=== PATIENT | male | born 1965 | race Caucasian/White ===

== ENCOUNTER 2021-04-02 09:45 | Outpatient (REF) | payer OTHER, SELFPAY | END 2021-04-02 09:46 | disposition home or self-care (01) | LOC: HO.HMGCLDS 09:45 | PROVIDERS: Visit Provider Internal Medicine | DX: Z20.822 Contact with and (suspected) exposure to COVID-19 (principal) | CPT/HCPCS: C9803; U0003; U0005 ==

== ENCOUNTER 2022-09-01 12:22 | Outpatient (REF) | payer OTHER, SELFPAY ==
[2022-09-01 14:13] LABS: Vitamin B12 834 pg/mL (200-900)
[2022-09-02 04:49] LABS: Syphilis Screen Nonreactive (Nonreactive)
[2022-09-03 02:23] LABS: Lyme Abs Screen <0.90 index
== END 2022-09-01 12:23 | disposition home or self-care (01) ==
LOC: HO.LAB 12:22
PROVIDERS: Visit Provider Psychiatry & Neurology Neurology
DX: G30.9 Alzheimer's disease, unspecified (principal)
CPT/HCPCS: 36415; 82607; 86617; 86618; 86780

== ENCOUNTER 2022-09-10 09:14 | Day surgery (SDC) | payer OTHER, SELFPAY ==
--- NOTE | ~2022-09-10 | FL_ITS ---
EXAMINATION: XR LUMBAR PUNCTURE CLINICAL INFORMATION: Alzheimer's disease. COMPARISON: MRI brain 09/07/2022. TECHNIQUE: Following explaining fluoroscopy-guided lumbar puncture procedure, benefits and risks, a written consent was obtained. Patient was placed prone on fluoroscopy table and an optimal site was selected overlying the L4-L5 disc level and marked on the skin. The marked area was cleaned and draped in usual sterile manner. 1% lidocaine was injected at puncture site. A 22-gauge spinal needle was advanced from the skin intrathecally at the L4-L5 disc level. After observing CSF return, patient was placed in left lateral decubitus view and opening CSF pressure was obtained. Subsequently clear CSF fluid was collected in 4 test tubes. The second test tube was slightly blood-tinged secondary to traumatic positioning. Postprocedure, needle was withdrawn and complete hemostasis achieved. Sterile Band-Aid applied postprocedure. Patient tolerated procedure extremely well. FINDINGS: On the visualized PA and lateral lumbar spine images the vertebral heights, alignment and disc heights are normal. A spinal needle is positioned intrathecally at the L4-L5 disc level. Opening CSF pressure 5 cm of water. Approximately 8.3 mL of clear CSF fluid was observed. A second and third test tube was slightly hemorrhagic secondary to traumatic puncture and manipulation. FLUOROSCOPY TIME: 0.5 minutes DOSE AREA PRODUCT: 6.966 uGy-m2 (microgray-meter squared) FL/FL guided lumbar puncture LP IMPRESSION: 1. Successful fluoroscopy lumbar puncture performed at the L4-L5 disc level. 2. Opening CSF pressures 5 cm of water. 3. Approximately 8.3 mL of clear CSF fluid observed.
[2022-09-10 09:45] VITALS: BMI 23.5
[2022-09-10 10:15] LABS: MANUAL DIFF FLAG NO
[2022-09-10 10:19] LABS: Basophils Percent Auto 0.4 % (0-2); Eosinophils Percent Auto 0.4 % (0-4); Hematocrit 46.1 % (42.0-52.0); Hemoglobin 15.9 g/dl (14.0-18.0); Imm Gran Abs Auto 0.02 X10*3/uL (0.00-0.03); Imm Gran Pct Auto 0.4 % (0.0-0.4); Lymphocytes Absolute Auto 0.9 X10*3/uL (1.2-4.9); Lymphocytes Percent Auto 17.5 % (20-40); Mean Corpuscular HGB Conc 34.5 g/dl (31.0-36.0); Mean Corpuscular Volume 89.9 fL (80.0-98.0); Mean Platelet Volume 9.9 fL (9.4-12.4); Monocytes Absolute Auto 0.3 X10*3/uL (0.1-1.2); Monocytes Percent Auto 6.5 % (2-11); Neutrophils Absolute Auto 3.8 x10*3/uL (2.0-8.3); Neutrophils Percent Auto 74.8 % (45-73); Platelet Count 170 X10*3/uL (160-400); Red Blood Count 5.13 X10*6/uL (4.60-5.80); Red Cell Distribution Width 12.2 % (11.0-16.0); White Blood Count 5.1 X10*3/uL (4.8-10.8)
[2022-09-10 10:35] LABS: INTERNATIONAL NORM RATIO 1.1 (0.9-1.1); Prothrombin Time 12.6 SEC (10.0-13.1)
[2022-09-10 10:38] LABS: Partial Thromboplastin Time 33.4 SEC (26.0-36.4)
[2022-09-10 12:05] VITALS: BP 137/81; PULSE 58; RESP 16; TEMP 36.7; O2SAT 99
[2022-09-10 12:35] VITALS: BP 120/72; PULSE 51; RESP 16; O2SAT 99
[2022-09-10 12:44] LABS: CSF Appearance Clear, Colorless; CSF Tube # 1
[2022-09-10 13:05] VITALS: BP 123/77; PULSE 61; RESP 16; O2SAT 99
[2022-09-10 13:31] LABS: Glucose CSF 60 mg/dL; Total Protein CSF 46.5 mg/dL (15-45)
[2022-09-10 13:35] VITALS: BP 123/73; PULSE 58; RESP 16; O2SAT 97
[2022-09-10 14:14] VITALS: BP 120/74; PULSE 60; RESP 16; TEMP 36.6; O2SAT 98
[2022-09-10 14:21] LABS: Appearance CSF CLOUDY; CSF Tube # 4; Color CSF PINK; White Blood Cell CSF 2 MM*3
[2022-09-10 14:22] LABS: Red Blood Cell CSF 1812 MM*3
[2022-09-10 14:23] LABS: CSF Monos 21 %; Lymphocytes CSF 43 %; Neutrophils CSF 36 %
[2022-09-17 18:17] LABS: Oligoclonal Banding Absent (Absent)
[2022-09-19 00:03] LABS: Albumin 3.8 g/dL (3.6-5.1); Albumin, CSF 34.2 mg/dL (8.0-42.0); IgG 997 mg/dL (600-1640); IgG, CSF 3.3 mg/dL (0.8-7.7)
== END 2022-09-10 14:31 | disposition home or self-care (01) ==
PROVIDERS: Radiology Diagnostic Radiology; PCP Nurse Practitioner Primary Care; Visit Provider Psychiatry & Neurology Neurology
PROC: 009U3ZZ Drainage of Spinal Canal, Percutaneous Approach (ICD-10-PCS; CPT 62270; principal; 2022-09-10 11:00)
DX: G30.9 Alzheimer's disease, unspecified (principal); F41.9 Anxiety disorder, unspecified
CPT/HCPCS: 36415; 62328; 82042; 82945; 83520; 83916; 84157; 85025; 85610; 85730; 87015; 87070; 87205; 89051

== ENCOUNTER 2023-04-15 09:58 | Outpatient (REF) | payer OTHER, SELFPAY | END 2023-04-15 09:59 | disposition home or self-care (01) | LOC: HO.MDS 09:58 | PROVIDERS: Visit Provider Psychiatry & Neurology Neurology | DX: G30.9 Alzheimer's disease, unspecified (principal) | CPT/HCPCS: 96365; J0174 ==

== ENCOUNTER 2023-04-29 10:30 | Outpatient (REF) | payer OTHER, SELFPAY | END 2023-04-29 10:31 | disposition home or self-care (01) | LOC: HO.MDS 10:30 | PROVIDERS: Visit Provider Psychiatry & Neurology Neurology | DX: G30.9 Alzheimer's disease, unspecified (principal) | CPT/HCPCS: 96365; J0174 ==

== ENCOUNTER 2023-05-13 11:47 | Outpatient (REF) | payer OTHER, SELFPAY | END 2023-05-13 11:48 | disposition home or self-care (01) | LOC: HO.MDS 11:47 | PROVIDERS: Visit Provider Psychiatry & Neurology Neurology | DX: G30.9 Alzheimer's disease, unspecified (principal) | CPT/HCPCS: 96365; J0174 ==

== ENCOUNTER 2023-05-27 09:49 | Outpatient (REF) | payer OTHER, SELFPAY ==
[2023-05-27 09:55] VITALS: BP 103/64; PULSE 85; RESP 18; TEMP 36.3; BMI 22.1
== END 2023-05-27 09:50 | disposition home or self-care (01) ==
LOC: HO.MDS 09:49
PROVIDERS: Visit Provider Psychiatry & Neurology Neurology
DX: G30.9 Alzheimer's disease, unspecified (principal)
CPT/HCPCS: 96365; J0174

== ENCOUNTER 2023-06-03 08:59 | Outpatient (REF) | payer OTHER, SELFPAY ==
--- NOTE | ~2023-06-03 | MR_ITS ---
EXAMINATION: MR BRAIN WITHOUT CONTRAST CLINICAL INFORMATION: Alzheimer's disease COMPARISON: None TECHNIQUE: Multiplanar multisequence MR imaging of the brain was obtained without intravenous contrast. FINDINGS: There is no acute infarct on diffusion-weighted imaging. There is no intracranial hemorrhage on iron-sensitive imaging. No extra-axial collection or mass effect/herniation. Scattered periventricular and deep white matter T2 FLAIR hyperintensities consistent with mild underlying microangiopathy. No hydrocephalus. Mild generalized cerebral volume loss with commensurate sulcal and ventricular prominence. The major flow voids at the skull base are preserved. The midline structures are normal. The cerebellar tonsils are normally positioned. The craniocervical junction is normal. Marrow signal is within normal limits. The visualized soft tissues are without significant abnormality. Mild ethmoid sinus mucosal thickening. MR/MR head/brain wo con IMPRESSION: 1. Mild generalized volume loss. No lobar predilection to suggest a specific neurodegenerative process. 2. Mild chronic white matter microangiopathy.
== END 2023-06-03 09:00 | disposition home or self-care (01) ==
LOC: HO.MRI 08:59
PROVIDERS: PCP Nurse Practitioner Primary Care; Visit Provider Psychiatry & Neurology Neurology
DX: G30.9 Alzheimer's disease, unspecified (principal)
CPT/HCPCS: 70551

== ENCOUNTER 2023-06-11 11:41 | Outpatient (REF) | payer OTHER, SELFPAY ==
[2023-06-11 11:58] VITALS: BP 130/76; PULSE 68; RESP 16; TEMP 36.8; O2SAT 100
[2023-06-11 13:44] VITALS: BP 127/82; PULSE 60; RESP 16; O2SAT 100
== END 2023-06-11 11:42 | disposition home or self-care (01) ==
LOC: HO.MDS 11:41
PROVIDERS: Visit Provider Psychiatry & Neurology Neurology
DX: G30.9 Alzheimer's disease, unspecified (principal)
CPT/HCPCS: 96365; J0174

== ENCOUNTER 2023-06-25 10:04 | Outpatient (REF) | payer OTHER, SELFPAY ==
--- NOTE | 2023-06-25 10:05 | PC.NURSE ---
pharmacy called for rachel
[2023-06-25 10:07] VITALS: BP 106/68; PULSE 69; RESP 20; TEMP 36.8; O2SAT 100
== END 2023-06-25 10:05 | disposition home or self-care (01) ==
LOC: HO.MDS 10:04
PROVIDERS: Visit Provider Psychiatry & Neurology Neurology
DX: G30.9 Alzheimer's disease, unspecified (principal)
CPT/HCPCS: 96365; J0174

== ENCOUNTER 2023-07-22 13:25 | Outpatient (REF) | payer OTHER, SELFPAY ==
--- NOTE | ~2023-07-22 | MR_ITS ---
EXAMINATION: MR BRAIN WITHOUT CONTRAST CLINICAL INFORMATION: Alzheimer's disease, started Leqembi, evaluate for lesions COMPARISON: MR brain 06/03/2023 TECHNIQUE: MRI of the brain was obtained using routine sequences without contrast. FINDINGS: There is no reduced diffusion to suggest acute infarct. Stable punctate chronic microhemorrhage in the right occipital lobe. No mass effect, extra-axial collection, midline shift, or other herniation. Mild generalized cerebral volume loss with associated ventricular and sulcal prominence. Stable scattered periventricular and subcortical T2/FLAIR hyperintense foci compatible with mild chronic microvascular ischemic change. Intracranial flow voids are preserved. Trace scattered paranasal sinus mucosal thickening. Mastoid air cells are well-aerated. No focal expansile or destructive osseous lesion. MR/MR head/brain wo con IMPRESSION: Stable examination. Mild generalized cerebral volume loss with mild chronic microvascular ischemic change.
== END 2023-07-22 13:26 | disposition home or self-care (01) ==
LOC: HO.MRI 13:25
PROVIDERS: PCP Nurse Practitioner Primary Care; Visit Provider Psychiatry & Neurology Neurology
DX: G30.9 Alzheimer's disease, unspecified (principal)
CPT/HCPCS: 70551

== ENCOUNTER 2023-10-22 19:41 | Outpatient (REF) | payer OTHER, SELFPAY ==
--- NOTE | ~2023-10-22 | MR_ITS ---
EXAMINATION: MR BRAIN WITHOUT CONTRAST CLINICAL INFORMATION: Alzheimer's dementia. History of Leqembi COMPARISON: MRI brain 07/22/2023. TECHNIQUE: MRI of the brain was obtained using routine sequences without contrast. FINDINGS: Diffusion-weighted images demonstrate no evidence of acute infarcts. Mild diffuse commensurate prominence of ventricles and sulci is noted. Mild scattered supratentorial subcortical and periventricular white matter punctate T2 hyperintensities are again visualized. Susceptibility weighted images demonstrate no evidence of acute or chronic hemorrhage within the brain parenchyma. The craniocervical junction cerebellar tonsils are normal in configuration. Incidental note is made of convex inward configuration of the superior margin of the pituitary, a frequently encountered asymptomatic anatomic variant. No suspicious marrow abnormalities visualized. Normal flow-related signal intensity is identified in the major intercranial vessels and dural sinuses. The orbits and globes are normal in appearance. No significant mucosal thickening or retained secretions noted in the paranasal sinuses, mastoid air cells and middle ear cavities. MR/MR head/brain wo con IMPRESSION: 1. No change compared with 07/22/2023. No acute intracranial abnormalities. Mild diffuse parenchymal volume loss of the brain and mild chronic microangiopathic ischemic changes.
== END 2023-10-22 19:42 | disposition home or self-care (01) ==
LOC: HO.MRI 19:41
PROVIDERS: PCP Nurse Practitioner Primary Care; Visit Provider Psychiatry & Neurology Neurology
DX: G30.9 Alzheimer's disease, unspecified (principal)
CPT/HCPCS: 70551

== ENCOUNTER 2024-02-01 10:16 | Outpatient (REF) | payer OTHER, SELFPAY ==
--- NOTE | ~2024-02-01 | MR_ITS ---
EXAMINATION: MR BRAIN WITHOUT CONTRAST CLINICAL INFORMATION: Alzheimer dementia COMPARISON: MRI dated October 22, 2023 TECHNIQUE: MRI of the brain was obtained using routine sequences without contrast. FINDINGS: No restricted diffusion. No acute intracranial hemorrhage, mass effect, midline shift, hydrocephalus or herniation. Boyd-white matter differentiation is normal. Posterior cranial fossa contents demonstrated no acute intracranial hemorrhage or mass effect. Susceptibility signal in the right temporoparietal white matter. Bilateral, nonspecific, hyperintense T2 FLAIR signal foci within the white matter of the supratentorial compartment. No signal abnormality or volume loss within the hippocampi. Sellar/suprasellar region is normal. Craniocervical junction is intact and normal. Midline structures are normal. Flow-void signal within the main vessels is normal. MR/MR head/brain wo con IMPRESSION: No acute brain abnormality. Nonspecific T2 FLAIR signal in the white matter which could be seen patient with migraines. Electronically signed by: Arnulfo Higginbotham MD 02/01/2024 12:37 PM ARMANDO
== END 2024-02-01 10:17 | disposition home or self-care (01) ==
LOC: HO.MRI 10:16
PROVIDERS: Visit Provider Psychiatry & Neurology Neurology
DX: G30.9 Alzheimer's disease, unspecified (principal)
CPT/HCPCS: 70551

== ENCOUNTER → 2024-02-01 10:30 | Outpatient (BNV) | payer OTHER, SELFPAY | PROVIDERS: Visit Provider Radiology Diagnostic Radiology | DX: G30.9 Alzheimer's disease, unspecified (principal) | CPT/HCPCS: 70551 ==

== ENCOUNTER 2024-04-24 08:00 | Outpatient (REF) | payer OTHER, SELFPAY ==
--- NOTE | ~2024-04-24 | MR_ITS ---
CLINICAL HISTORY: ALZHEIMERS DISEASE MR Brain without gadolinium Comparison: None Findings: No restricted diffusion. No intracranial mass or hemorrhage. No midline shift. No hydrocephalus. Vascular flow voids are intact. Scattered T2 signal prolongation within the periventricular white matter. Tiny focus of hemosiderin deposition within the right posterior temporal lobe medially. Orbital contents are unremarkable. There is mucoperiosteal thickening of the maxillary sinuses and ethmoid air cells. No focal bone lesion. IMPRESSION: Mild chronic changes. No acute process. This document has been electronically signed by: Michael Sesay MD on 04/24/2024 12:59:31
== END 2024-04-24 08:01 | disposition home or self-care (01) ==
LOC: HO.MRI 08:00
PROVIDERS: Visit Provider Psychiatry & Neurology Neurology
DX: G30.9 Alzheimer's disease, unspecified (principal)
CPT/HCPCS: 70551

== ENCOUNTER → 2024-04-24 08:00 | Outpatient (BNV) | payer OTHER, SELFPAY | PROVIDERS: Visit Provider Radiology Vascular & Interventional Radiology | DX: G30.9 Alzheimer's disease, unspecified (principal) | CPT/HCPCS: 70551 ==

== ENCOUNTER 2024-08-22 09:54 | Outpatient (REF) | payer OTHER, SELFPAY ==
--- NOTE | ~2024-08-22 | MR_ITS ---
CLINICAL HISTORY: ALZHEIMERS DEMENTIA MR of the brain without contrast Comparison: MR - MR HEAD/BRAIN WO CON - 04/24/24 08:03 EST Findings: No new MR evidence of amyloid related imaging abnormality. There are foci of increased signal on the FLAIR/ T2 weighted images within the subcortical white matter which are similar to the prior study. No increased signal within the cortex on the FLAIR/T2 weighted images. No increased signal on the FLAIR images within the sulci to indicate sulcal effusions. There is a focus of susceptibility on the SWI images within the right parietal lobe, unchanged. No new parenchymal microhemorrhages. No sulcal/leptomeningeal hemosiderin deposits. No restricted diffusion. No mass-effect or herniation. No hydrocephalus. No extra-axial fluid collection or mass. Unremarkable sella. Intact flow voids. Normal orbits. Mucosal thickening in the maxillary sinuses and ethmoid air cells. Otherwise clear paranasal sinuses and mastoid air cells. Unremarkable osseous structures. Impression: Stable examination. This document has been electronically signed by: Ashley Montoya MD on 08/23/2024 15:33:43
--- OUTSIDE RECORDS SUMMARY | 2024-08-22 10:38 | XMS_ITS | Clinical Summary ---
Author Organization [facility] Address [address] [place] [address] Phone Care Team Providers Care Yield Improvement Engineer Name Role Phone Kamala Samuel NP Primary Care Provider [phone] Encounters Date Type Department Care Team Description 07/07/2024 2:55 PM EDT - 07/07/2024 11:59 PM EDT Hospital Encounter [facility] PET Scan [address] [place] [address] Alzheimer's disease, unspecified (CODE) ([facility] V24, [facility] V28) Discharge Disposition: Home or Self Care from Last 3 Months Surgical History Surgery Date Site/Laterality Comments CHOLECYSTECTOMY PROCEDURE: HISTORICAL CHOLECYSTECTOMY Medical History Medical History Date Comments Elevated PSA DX:Elevated PSA Family History Medical History Relation Name Comments Alzheimer's disease Father Heart attack Maternal Grandmother Diabetes Mother Hyperlipidemia Mother Hypertension Mother Breast cancer Sister Relation Name Status Comments Father Maternal Grandmother Mother Sister Social History Tobacco Use Types Packs/Day Years Used Date Smoking Tobacco: Never Alcohol Use Standard Drinks/Week Comments Never 0 (1 standard drink = 0.6 oz pur e alcohol) Sex and Gender Information Value Date Recorded Sex Assigned at Not on file Legal Sex Male 3:01 AM EST Gender Identity Not on file Sexual Orientation Not on file Obstetrics History Last Filed Vital Signs Vital Sign Reading Time Taken Comments Blood Pressure 116/68 06/02/2023 11:08 AM EST A Pulse 70 06/02/2023 11:08 AM EST Temperature - - Respiratory Rate - - Oxygen Saturation - - Inhaled Oxygen Concentration - - Weight 72.3 kg (159 lb 6.4 oz) 06/02/2023 11:08 AM EST Height 175.3 cm (5' 9 ) 06/02/2023 11:08 AM EST Body Mass Index 23.54 06/02/2023 11:08 AM EST Plan of Treatment Health Maintenance Due Date Last Done Comments DTaP,Tdap,and Td Vaccines (1 - Tdap) 1984 Hepatitis B Vaccines (1 of 3 - 19+ 3-dose series) 1984 Pneumococcal Vaccine: 50+ Years (1 of 1 - PCV) 10/28/2015 Cholesterol Screening (Lipid Panel) 03/01/2022 Colorectal Cancer Screening: Colonoscopy 03/01/2022 Depression Screening 03/01/2022 HIV Screening 03/01/2022 Hepatitis C Screening 03/01/2022 Social Influencers of Health Screening 03/01/2022 MMR Vaccines Aged Out 07/08/2016 No longer eligi ble based on patient's age to complete this topic Zoster Vaccines Completed 08/29/2023, 06/28/2023 COVID-19 Vaccine Completed 01/01/2024, , 11/27/2022, Additional history exists Influenza Vaccine Completed 01/01/2024, , 01/14/2022, Additional history exists HIB Vaccines Aged Out No longer eligi ble based on patient's age to complete this topic HPV Vaccines Aged Out No longer eligi ble based on patient's age to complete this topic Hepatitis A Vaccines Aged Out No long er eligible based on patient's age to complete this topic IPV Vaccines Aged Out No longer eligi ble based on patient's age to complete this topic Meningococcal ACWY Vaccine Aged Out N o longer eligible based on patient's age to complete this topic Meningococcal B Vaccine Aged Out No l onger eligible based on patient's age to complete this topic Pneumococcal Vaccine: Pediatrics (0 to 5 Years) and At-Risk Patients (6 to 64 Years) Aged Out No longer eligible based on patient's age to complete this topic RSV Immunization Patients Under 20 months Aged Out No longer eligible based on patient's age to complete this topic Varicella Vaccines Aged Out No longer eligible based on patient's age to complete this topic Procedures Procedure Name Priority Date/Time Associated Diagnosis Comments PET CT LIMITED AREA INITIAL Routine 07/07/2024 3:55 PM EDT Alzheimer's disease, unspecified (CODE) ([facility] V24, [facility] V28) from Last 3 Months Results * PET CT Limited Area Initial (07/07/2024 3:55 PM EDT) Anatomical Region Laterality Modality Body Radiographic Nargis ging 07/10/2024 4:14 AM EDT Impressions 07/14/2024 7:42 AM EDT Positive study This scan was interpreted using consensus imaging with another board certified radiologist, Dr. Ramirez. Please note: The CT was acquired at a low radiation dose settings. ??The images are of nondiagnostic quality and used solely for purposes of attenuation correction and slice localization for the PET scan. ??If a diagnostic CT study is desired it must be ordered separately. -------- FINAL REPORT -------- Dictated By: Yeni Moise Dictated Date: 07/10/2024 04:14 ET Assigned Physician: Yeni Moise Reviewed and Electronically Signed By: Yeni Moise Signed Date: 07/14/2024 07:42 ET Workstation ID: [id number] Transcribed By: Self Edit Transcribed Date: 07/10/2024 04:35 ET Narrative 07/14/2024 7:42 AM EDT INDICATION: ALZHEIMER'S DISEASE TECHNIQUE: F-18 Amyvid PET imaging was performed from of the head in a single acquisition with data set reconstructed in axial, coronal, and sagittal planes at the computer workstation with fused data from both the PET imaging study and attenuation correction CT. The CT portion of the examination was done strictly for attenuation correction and is not a true diagnostic CT examination. DLP: ??955 mGy-cm Radiopharmaceutical: 9.8 mCi of F-18 Florbetapir IV. COMPARISON: Outside brain MRI January 2024 FINDINGS: HEAD AND NECK: Lack of of kiran-white matter differentiation. Procedure Note Yeni Moise MD - 07/14/2024 INDICATION: ALZHEIMER'S DISEASE TECHNIQUE: F-18 Amyvid PET imaging was performed from of the head in asingle acquisition with data set reconstructed in axial, coronal, andsagittal planes at the computer workstation with fused data from both thePET imaging study and attenuation correction CT. The CT portion of theexamination was done strictly for attenuation correction and is not a truediagnostic CT examination. DLP: 955 mGy-cm Radiopharmaceutical: 9.8 mCi of F-18 Florbetapir IV. COMPARISON: Outside brain MRI January 2024 FINDINGS: HEAD AND NECK: Lack of of kiran-white matter differentiation. IMPRESSION: Positive study This scan was interpreted using consensus imaging with another boardcertified radiologist, Dr. Ramirez. Please note: The CT was acquired at a low radiation dose settings. The images are ofnondiagnostic quality and used solely for purposes of attenuationcorrection and slice localization for the PET scan. If a diagnostic CTstudy is desired it must be ordered separately. -------- FINAL REPORT -------- Dictated By: Yeni Moise Dictated Date: 07/10/2024 04:14 ET Assigned Physician: Yeni Moise Reviewed and Electronically Signed By: Yeni Moise Signed Date: 07/14/2024 07:42 ET Workstation ID: [id number] Transcribed By: Self Edit Transcribed Date: 07/10/2024 04:35 ET us Lalo Chirinos MD IMG NM PROCEDURES Final Res ult from Last 3 Months Care Teams Yield Improvement Engineer Relationship Specialty Start Date End Date Kamala Samuel NP [address] [place] [address] PCP - General 05/15/22
== END 2024-08-22 09:55 | disposition home or self-care (01) ==
LOC: HO.MRI 09:54
PROVIDERS: Visit Provider Psychiatry & Neurology Neurology
DX: G30.9 Alzheimer's disease, unspecified (principal)
CPT/HCPCS: 70551

== ENCOUNTER → 2024-08-22 10:00 | Outpatient (BNV) | payer OTHER, SELFPAY | PROVIDERS: Visit Provider Radiology Diagnostic Radiology | DX: G30.9 Alzheimer's disease, unspecified (principal) | CPT/HCPCS: 70551 ==

== ENCOUNTER 2024-10-09 16:14 | Outpatient (AMB) | payer OTHER, SELFPAY ==
--- NOTE | 2024-10-09 16:15 | A.OFFVIS_ITS ---
Intake Visit Reasons: 2m Allergies No Known Allergies Allergy (Verified 09/10/22 09:50) Medication List - Last Reconciled 10/09/24 by Lalo Chirinos MD donepezil 10 mg PO BEDTIME lecanemab-irmb (Leqembi) IV memantine 5 mg PO BID sertraline 25 mg PO DAILY HPI Comments Details: 58 yo man with a Master's degree in Psychology was noted to have forgetfulness in 2019. I started seeing him in August of 2022 when he and his reported multiple cognitive issues but mostly forgetfulness. A clinical diagnosis of Alzheimer was made. MRI brain revealed mild diffuse atrophy, and CSF analysis was suggestive of Alzheimer. He was started on Leqembi 0n Apr 15, 2023. 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 [facility] Medical History (Updated 10/09/24 @ 16:28 by Lalo Chirinos MD) Anxiety Alzheimer dementia Family History (Updated 10/06/24 @ 09:45 by Emeka Perez MA) Father Dementia Paternal Uncle Dementia Review of Systems Const Details: Constitutional:?No fever, chills, fatigue, weight loss, or night sweats. HEENT:?No headache, vision changes, hearing loss, nasal congestion, sore throat. Neurological:? Complain of forgetfulness Psychiatric:?No anxiety, depression, mood swings, sleep disturbance, or hallucinations. Endocrine:?No heat/cold intolerance, polydipsia, polyuria, or hair/skin changes. Hematologic/Lymphatic:?No easy bruising, bleeding, or lymphadenopathy. Integumentary (Skin):?No rash, lesions, itching, or color changes. ? Physical Exam Neuro Other: Mental Status: Alert and oriented to person, place, and time. Normal attention. Normal spontaneous speech, fluency, and comprehension. No obvious issues with mood and memory. Affect is appropriate. Cranial Nerves: CN II: Visual lee full to confrontation, visual acuity intact. CN III, IV, : Pupils equal, round, reactive to light and accommodation. Extraocular movements are normal. CN V: Facial sensation is normal. CN VII: Facial movements symmetrical. CN VIII: Hearing intact to bedside conversation is normal. CN IX, X: Palate elevates symmetrically. CN XI: Shoulder shrug and head turn symmetrical. CN XII: Tongue midline without atrophy or fasciculations. Motor: Bulk and tone normal in all extremities. No significant muscle weakness in arms and legs. No drift. Reflexes: Deep tendon reflexes 2+ and symmetric. Plantar response down-going bilaterally. Coordination: Zmnbvo-[id number]-kyfp and zyhm-mo-qpxm testing normal. No dysmetria. Gait and Station: No obvious gait abnormality. No ataxia or instability. Sensory: Intact to light touch, pinprick, and vibration. Romberg is negative. Extrapyramidal: Full facial expressions and blinking. No rigidity. Movements are appropriate with no tremor or abnormality. Speech: Normal; no dysarthria or tremor. Assessment & Plan Assessment & Plan (1) Alzheimer dementia: Comment: MRI brain WO at [facility] in July 2024: Mild bitemporal, mostly hippocampal, atrophy Brain PET at [facility] in Jun 2024: Positive study MRI brain WO at [facility] in Jan 2024: Mild MVD, mild atrophy MRI brain WO at [facility] in September 2023: No change MRI WO at [facility] on Jul 22, 2023: No change MRI brain WO at [facility] on Apr 24, 2024: Mild atrophy, minimal MVD MRI WO at [facility] on Jun 03, 2023: Mild MVD, Mild atrophy MRI brain WO at [facility] in August 2022: Mild diff atrophy, minimal MVD Labs at [facility] in 2022; CBC OK, B12 834, Lyme neg, Trep test neg, LP at [facility] in August 2022: OP 5cm, WBCs 2, RBCs 1812, Glu 60, Pro 46.5, Abeta 42 to T Tau ratio is reduced suggestive of AD Code(s): G30.9 - Alzheimer's disease, unspecified; F02.80 - Dementia in other diseases classified elsewhere, unspecified severity, without behavioral disturbance, psychotic disturbance, mood disturbance, and anxiety Category: Medical Qualifiers: Alzheimer's disease onset: early onset Dementia severity: mild Dementia behavioral or psychological symptom: with anxiety Qualified Code(s): G30.0 - Alzheimer's disease with early onset; F02.A4 - Dementia in other d iseases classified elsewhere, mild, with anxiety (2) Anxiety: Code(s): F41.9 - Anxiety disorder, unspecified Category: Medical Plan Impression: 58 years old man with early-onset mild dementia of Alzheimer type confirmed with CSF analysis and amyloid brain PET scan. He was started on Leqembi in March of 2023. Brain PET in June was still positive. He did not have any side effect or untoward reaction from this medicine. His recent brain MRI revealed stability with no significant difference from his 1st MRI in 2022. Recommendations: 1. Continue Leqembi 2. Continue memantine 5 mg twice a day 3. Continue donepezil 10 mg a day 4. Continue sertraline 25 mg daily and 5. Neuropsychological test Orders: Referrals Neuropsychiatry Referral F02.A4 - Dementia in other diseases classified elsewhere, mild, with anxiety, G30.0 - Alzheimer's disease with early onset Medications: New memantine 5 mg PO BID 180 tabs 0RF sertraline 25 mg PO DAILY 90 tabs 0RF donepezil 10 mg PO BEDTIME 90 tabs 0RF Coding Level of Care Code Tele Est Pt Level 4 (55512) Diagnoses Mild early onset Alzheimer's dementia with anxiety G30.0; F02.A4 Alzheimer's disease onset: early onset Dementia severity: mild Dementia behavioral or psychological symptom: with anxiety Anxiety F41.9
--- OUTSIDE RECORDS SUMMARY | 2024-10-09 17:01 | XMS_ITS | Clinical Summary ---
Author Organization [facility] Address [address] [place] [address] Phone Care Team Providers Care Orderlies Teacher Name Role Phone Kamala Samuel NP Primary Care Provider [phone] Surgical History Surgery Date Site/Laterality Comments CHOLECYSTECTOMY [...] 03/01/2022 Social Influencers of Health Screening 03/01/2022 Influenza Vaccine (#1) 2024 , 01/19/2023, 01/14/2022, Additional history exists MMR Vaccines Aged Out 07/08/2016 No longer eligi ble based on patient's age to complete this topic Zoster Vaccines Completed 08/29/2023, 06/28/2023 COVID-19 Vaccine Completed 01/01/2024, , 11/27/2022, Additional history exists HIB Vaccines Aged Out [...] on patient's age to complete this topic Care Teams Orderlies Teacher Relationship Specialty Start Date End Date Kamala Samuel NP [address] [place], [place] [address] [address] PCP - General 05/15/22
== END 2024-10-09 16:36 | disposition home or self-care (01) ==
LOC: HO.HSM 16:14
PROVIDERS: PCP Internal Medicine; Visit Provider Psychiatry & Neurology Neurology
DX: G30.0 Alzheimer's disease with early onset (principal); F02.A4 Dementia in other diseases classified elsewhere, mild, with anxiety; F41.9 Anxiety disorder, unspecified
CPT/HCPCS: 99214

== ENCOUNTER 2025-01-01 15:43 | Outpatient (REF) | payer OTHER, SELFPAY ==
[2025-01-01 18:20] LABS: Alanine Aminotransferase 23 U/L (0-40); Albumin Level 4.9 g/dL (3.5-5.0); Alkaline Phosphatase 55 U/L (39-117); Aspartate Amino Transferase 26 U/L (5-37); Total Protein 7.2 g/dL (6.5-8.0)
[2025-01-03 22:42] LABS: JCV Index Value 2.26 index
== END 2025-01-01 15:44 | disposition home or self-care (01) ==
LOC: HO.LAB 15:43
PROVIDERS: PCP Internal Medicine; Visit Provider Psychiatry & Neurology Neurology
DX: G30.0 Alzheimer's disease with early onset (principal); F02.A4 Dementia in other diseases classified elsewhere, mild, with anxiety; F41.9 Anxiety disorder, unspecified; Z01.84 Encounter for antibody response examination
CPT/HCPCS: 36415; 80076; 86711

== ENCOUNTER 2025-01-01 15:43 | Outpatient (AMB) | payer OTHER, SELFPAY ==
--- NOTE | 2025-01-01 15:46 | A.OFFVIS_ITS ---
Intake Visit Reasons: 3m [facility] Allergies No Known Allergies Allergy (Verified 09/10/22 09:50) HPI Comments Details: 59 yo man with a Master's degree in Psychology was noted to have forgetfulness in 2019. I started seeing him in August of 2022 when he and his reported multiple cognitive issues but mostly forgetfulness. A clinical diagnosis of Alzheimer was made. MRI brain revealed mild diffuse atrophy, and CSF analysis was suggestive of Alzheimer. He was started on Leqembi 0n Apr 15, 2023. 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 He is relatively stable and tolerating medicines without difficulty or side- effects. No new symptoms. He was walking every day. 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 [facility] Medical History (Updated 10/09/24 @ 16:28 by Lalo Chirinos MD) Anxiety Alzheimer dementia Family History (Updated 10/06/24 @ 09:45 by Emeka Perez CMA) Father Dementia Paternal Uncle Dementia Review of Systems Const Details: - Hearing: Reports wearing hearing aids and difficulty following conversations. - General: Denies severe illness or ICU admission with COVID-19. - Neurological: Reports cognitive decline; taking donepezil and memantine. - Musculoskeletal: Reports engaging in daily walking exercises. Physical Exam Neuro Other: Mental Status: Alert and oriented to person, place, and time. Normal attention. Normal spontaneous speech, fluency, and comprehension. Cranial Nerves: CN II: Visual lee full to confrontation, visual acuity intact. CN III, IV, : Pupils equal, round, reactive to light and accommodation. Extraocular movements are normal. CN V: Facial sensation is normal. CN VII: Facial movements symmetrical. CN VIII: Hearing intact to bedside conversation is normal. CN IX, X: Palate elevates symmetrically. CN XI: Shoulder shrug and head turn symmetrical. CN XII: Tongue midline without atrophy or fasciculations. Motor: Bulk and tone normal in all extremities. No significant muscle weakness in arms and legs. No drift. Reflexes: Deep tendon reflexes 2+ and symmetric. Plantar response down-going bilaterally. Coordination: Cigdrq-xc-qjdt and hkpe-rv-rzoc testing normal. No dysmetria. Gait and Station: No obvious gait abnormality. No ataxia or instability. Extrapyramidal: Full facial expressions and blinking. No rigidity. Movements are appropriate with no tremor or abnormality. Speech: Normal; no dysarthria or tremor. Assessment & Plan Assessment & Plan (1) Alzheimer dementia: Comment: [place] brain [place] [facility]: Mild bitemporal, mostly hippocampal, atrophy Brain PET at [facility] in Jun 2024: Positive study MRI brain WO at [facility] [place] Jan 2024: Mild MVD, mild atrophy MRI brain WO at [facility] 2023: No change MRI WO at [facility] [place] Jul 22, 2023: No change MRI brain WO at [facility] on Apr 24, 2024: Mild atrophy, minimal MVD MRI WO at [facility] on Jun 03, 2023: Mild MVD, Mild atrophy MRI brain WO at [facility] in August 2022: Mild diff atrophy, minimal MVD Labs at [facility] in 2022; CBC OK, B12 834, Lyme neg, Trep test neg, LP at [facility] in August 2022: OP 5cm, WBCs 2, RBCs 1812, Glu 60, Pro 46.5, Abeta 42 to T Tau ratio is reduced suggestive of AD Code(s): G30.9 - Alzheimer's disease, unspecified; F02.80 - Dementia in other diseases classified elsewhere, unspecified severity, without behavioral disturbance, psychotic disturbance, mood disturbance, and anxiety Category: Medical Qualifiers: Alzheimer's disease onset: early onset Dementia severity: mild Dementia behavioral or psychological symptom: with anxiety Qualified Code(s): G30.0 - Alzheimer's disease with early onset; F02.A4 - Dementia in other diseases classified elsewhere, mild, with anxiety (2) Anxiety: Code(s): F41.9 - Anxiety disorder, unspecified Category: Medical Plan Impression: Mild Alzheimer dementia Recommendations: 1. Continue Leqembi 2. Liver enzyme test [place] CV titer 3. Donepezil 10 mg daily 4. Sertraline 25 mg daily 5. Memantine 10 mg twice a day 6. Reassurance and education Orders: Orders Liver Panel Today F02.A4 - Dementia in other diseases classified elsewhere, mild, with anxiety, G30.0 - Alzheimer's disease with early onset JCV Ab w/Indx rflx Inhibition Today F02.A4 - Dementia in other diseases classified elsewhere, mild, with anxiety, G30.0 - Alzheimer's disease with early onset Medications: New memantine 10 mg PO BID 180 tabs 1RF Discontinued memantine Discontinued Reason: Doctor's Order 5 mg PO BID 180 tabs 0RF Coding Level of Care Code Est Pt Level 4 (10031) Diagnoses Mild early onset Alzheimer's dementia with anxiety G30.0; F02.A4 Alzheimer's disease onset: early onset Dementia severity: mild Dementia behavioral or psychological symptom: with anxiety Anxiety F41.9
--- OUTSIDE RECORDS SUMMARY | 2025-01-01 18:03 | XMS_ITS | Clinical Summary ---
Author Organization [facility] Address [address] [place] [address] Phone Care Team Providers Care Program Coordinator Name Role Phone Kamala Samuel NP Primary Care Provider [phone] Active Problems Problem Noted Date Diagnosed Date Mild early onset Alzheimer's dementia with anxiety (CMS/HCC V24, CMS/[facility] V28) 10/10/2024 Surgical History Surgery Date Site/Laterality Comments CHOLECYSTECTOMY [...] Health Maintenance Due Date Last Done Comments Colorectal Cancer Screening: Colonoscopy 1965 DTaP,Tdap,and Td Vaccines (1 - Tdap) 1984 Hepatitis B Vaccines (1 of 3 - 19+ 3-dose series) 1984 Pneumococcal Vaccine: 50+ Years (1 of 1 - PCV) 10/28/2015 Cholesterol Screening (Lipid Panel) 03/01/2022 HIV Screening 03/01/2022 Hepatitis C Screening 03/01/2022 Social Influencers of Health Screening 03/01/2022 Depression Screening 03/29/2024 Influenza Vaccine (#1) 2024 , 01/19/2023, 01/14/2022, Additional history exists RSV Immunization Adult Patients (1 - 1-dose 75+ series) 2040 MMR Vaccines Aged Out 07/08/2016 No longer [...] age to complete this topic Care Teams Program Coordinator Relationship Specialty Start Date End Date Kamala Samuel NP [address] [place] [address] [place] [id number] PCP - General 05/15/22
== END 2025-01-01 15:57 | disposition home or self-care (01) ==
LOC: HO.HSM 15:43
PROVIDERS: PCP Internal Medicine; Visit Provider Psychiatry & Neurology Neurology
DX: G30.0 Alzheimer's disease with early onset (principal); F02.A4 Dementia in other diseases classified elsewhere, mild, with anxiety; F41.9 Anxiety disorder, unspecified
CPT/HCPCS: 99214